=== PATIENT | male | born 1935 | race Caucasian/White ===

== ENCOUNTER 2018-02-11 14:07 | Inpatient (IN) | payer MEDICARE, BC ==
[2018-02-11 14:27] LABS: ADD MAN DIFF? NO
[2018-02-11] MEDS: ONDANSETRON 4 MG INJ IV ×2 (14:27→16:53)
[2018-02-11] MEDS: SODIUM CHLORIDE 0.9% 1L BAG IV* (14:28)
[2018-02-11] MEDS: morphine 4 MG/ML VIAL IV ×2 (14:28→16:54)
[2018-02-11] MEDS: CEFEPIME 2GM/50 ML (PMX) 50 ML IVPB (14:29)
[2018-02-11] MEDS: ACETAMINOPHEN 325 MG TAB PO (14:29)
[2018-02-11 14:32] LABS: ABNORMAL IP MESSAGE 1; BASOPHILS % 0.1 % (0.0-2.0); EOSINOPHILS # 0.1 10^3/ul (0.0-0.5); EOSINOPHILS % 0.4 % (0.0-7.0); HEMATOCRIT 41.2 % (42.0-52.0); HEMOGLOBIN 13.7 g/dl (14.0-18.0); LYMPHOCYTES # 0.4 10^3/ul (0.8-2.9); MEAN CORPUSCULAR HEMOGLOBIN 31.4 pg (29.0-33.0); MEAN CORPUSCULAR HGB CONC 33.3 g/dl (32.0-37.0); MEAN CORPUSCULAR VOLUME 94.3 fl (82.0-101.0); MEAN PLATELET VOLUME 10.1 fl (7.4-10.4); MONOCYTE # 0.1 10^3/ul (0.3-0.9); MONOCYTES % 1.1 % (0.0-11.0); NEUTROPHIL # 12.1 10^3/ul (1.6-7.5); PLATELET COUNT 264 10^3/UL (140-415); POSITIVE DIFF @See below; RED BLOOD COUNT 4.37 10^6/ul (4.70-6.10); RED CELL DISTRIBUTION WIDTH 12.7 % (11.5-14.5)
[2018-02-11 14:32] LABS: WHITE BLOOD COUNT 12.7 10^3/ul (4.8-10.8)
[2018-02-11 14:48] LABS: INR 0.88; PARTIAL THROMBOPLASTIN TIME 24.8 Sec (23.0-35.0); PT RATIO 0.9
[2018-02-11 14:52] LABS: ALANINE AMINOTRANSFERASE 148 IU/L (13-69); ALBUMIN 4.4 g/dl (3.3-4.9); ALBUMIN/GLOBULIN RATIO 1.69; ALKALINE PHOSPHATASE 384 IU/L (42-121); ANION GAP 12 (5-13); ASPARTATE AMINO TRANSFERASE 180 IU/L (15-46); BILIRUBIN,INDIRECT 0.6 mg/dl (0-1.1); BILIRUBIN,TOTAL 2.6 mg/dl (0.2-1.3); BLOOD UREA NITROGEN 20 mg/dl (7-20); CALCIUM 9.5 mg/dl (8.4-10.2); CARBON DIOXIDE 29 mmol/L (21-31); CHLORIDE 102 mmol/L (97-110); CREATININE 0.86 mg/dl (0.61-1.24); GLUCOSE 119 mg/dl (70-220); LIPASE 121 U/L (23-300); POTASSIUM 4.1 mmol/L (3.5-5.1); SODIUM 143 mmol/L (135-144)
[2018-02-11] MEDS: VANCOMYCIN 1 GM (PMX) 250 ML IVPB (15:06)
[2018-02-11 15:24] LABS: EOSINOPHILS % (M) 1 % (0-7); GIANT THROMBO% (M) 1 % (0-0); LYMPHOCYTES #M 0.7 10^3/ul (0.8-2.9); LYMPHOCYTES % (M) 6 % (15-51); PLATELET ESTIMATE NORMAL; SEGMENTED NEUTROPHILS (M) % 93 % (39-77); SMUDGE%M 16 % (0-0)
[2018-02-11] MEDS ORDERED: ACETAMINOPHEN 325 MG TAB PO ×2 (17:00→18:00)
[2018-02-11] MEDS ORDERED: ONDANSETRON 4 MG INJ IV ×2 (17:00→18:00)
[2018-02-11] MEDS: SOD CHLORIDE 0.9% 1,000 ML IV (17:37)
[2018-02-11] MEDS ORDERED: PIPER-TAZO 3.375 GM IV (PMX) 100 ML IVPB (18:00)
[2018-02-11] MEDS ORDERED: NACL 0.9% 3 ML SYG IV (18:00)
[2018-02-11 18:44] LABS: LACTIC ACID 2.2 mmol/L (0.5-2.0)
[2018-02-11] MEDS: morphine 2 MG INJ IV ×2 (18:50→23:09)
[2018-02-11] MEDS: CEFEPIME 2GM/50 ML IVPB (23:09)
[2018-02-12] MEDS: ZOLPIDEM 5 MG TAB PO (00:09)
[2018-02-12] MEDS: SOD CHLORIDE 0.9% 1,000 ML IV ×5 (03:27→23:37)
[2018-02-12 05:43] LABS: WHITE BLOOD COUNT 27.3 10^3/ul (4.8-10.8)
[2018-02-12 05:43] LABS: ABNORMAL IP MESSAGE 1; HEMOGLOBIN 12.9 g/dl (14.0-18.0); MEAN CORPUSCULAR HEMOGLOBIN 31.1 pg (29.0-33.0); MEAN CORPUSCULAR HGB CONC 33.1 g/dl (32.0-37.0); PLATELET COUNT 201 10^3/UL (140-415); POSITIVE DIFF @See below; RED BLOOD COUNT 4.15 10^6/ul (4.70-6.10); RED CELL DISTRIBUTION WIDTH 13.3 % (11.5-14.5)
[2018-02-12 06:22] LABS: ALANINE AMINOTRANSFERASE 337 IU/L (13-69); ALBUMIN 3.5 g/dl (3.3-4.9); ALBUMIN/GLOBULIN RATIO 1.29; ALKALINE PHOSPHATASE 305 IU/L (42-121); ANION GAP 12 (5-13); ASPARTATE AMINO TRANSFERASE 522 IU/L (15-46); BILIRUBIN,INDIRECT 0.9 mg/dl (0-1.1); BILIRUBIN,TOTAL 5.1 mg/dl (0.2-1.3); BLOOD UREA NITROGEN 27 mg/dl (7-20); CALCIUM 8.4 mg/dl (8.4-10.2); CARBON DIOXIDE 26 mmol/L (21-31); CHLORIDE 100 mmol/L (97-110); CREATININE 1.03 mg/dl (0.61-1.24); GLUCOSE 119 mg/dl (70-220); PHOSPHORUS 3.2 mg/dl (2.5-4.9); POTASSIUM 5.1 mmol/L (3.5-5.1); SODIUM 138 mmol/L (135-144); TOTAL PROTEIN 6.2 g/dl (6.1-8.1)
[2018-02-12 06:23] LABS: ADD MAN DIFF? YES
[2018-02-12 08:01] LABS: BAND NEUTROPHILS #M 3.8 10^3/ul (0.0-0.6); BAND NEUTROPHILS % (M) 14 % (0-4); LYMPHOCYTES #M 0.2 10^3/ul (0.8-2.9); LYMPHOCYTES % (M) 1 % (15-51); MONOCYTE #M 0.8 10^3/ul (0.3-0.9); MONOCYTES % (M) 3 % (0-11); PLATELET ESTIMATE NORMAL; RBC MORPHOLOGY COMMENT @See below; SEG NEUT #M 23.4 10^3/ul (1.6-7.5); SEGMENTED NEUTROPHILS (M) % 82 % (39-77); SMUDGE%M 7 % (0-0); WBC MORPHOLOGY COMMENT @See below
[2018-02-12] MEDS: CEFEPIME 2GM/50 ML IVPB ×2 (09:01→20:06)
[2018-02-12] MEDS: FAMOTIDINE 20 MG TAB PO ×2 (11:00→20:06)
[2018-02-12] MEDS: DIPHENHYDRAMINE 50 MG CAP PO (17:56)
[2018-02-12] MEDS: CHLORPROMAZINE 25 MG TAB PO (20:06)
[2018-02-13] MEDS: SOD CHLORIDE 0.9% 1,000 ML IV ×3 (05:44→17:16)
[2018-02-13 07:48] LABS: ADD MAN DIFF? NO
[2018-02-13 07:50] LABS: BASOPHILS % 0.2 % (0.0-2.0); EOSINOPHILS # 0.1 10^3/ul (0.0-0.5); EOSINOPHILS % 0.6 % (0.0-7.0); HEMATOCRIT 37.5 % (42.0-52.0); HEMOGLOBIN 12.5 g/dl (14.0-18.0); LYMPHOCYTES # 0.7 10^3/ul (0.8-2.9); LYMPHOCYTES % 4.5 % (15.0-51.0); MEAN CORPUSCULAR HEMOGLOBIN 31.3 pg (29.0-33.0); MEAN CORPUSCULAR HGB CONC 33.3 g/dl (32.0-37.0); MEAN CORPUSCULAR VOLUME 93.8 fl (82.0-101.0); MEAN PLATELET VOLUME 11.3 fl (7.4-10.4); MONOCYTE # 0.6 10^3/ul (0.3-0.9); MONOCYTES % 3.7 % (0.0-11.0); NEUTROPHIL # 13.5 10^3/ul (1.6-7.5); NEUTROPHILS % 88.6 % (39.0-77.0); PLATELET COUNT 153 10^3/UL (140-415); RED CELL DISTRIBUTION WIDTH 13.5 % (11.5-14.5)
[2018-02-13 07:50] LABS: WHITE BLOOD COUNT 15.3 10^3/ul (4.8-10.8)
[2018-02-13 08:16] LABS: ALANINE AMINOTRANSFERASE 588 IU/L (13-69); ALBUMIN 2.7 g/dl (3.3-4.9); ALBUMIN/GLOBULIN RATIO 1.08; ALKALINE PHOSPHATASE 385 IU/L (42-121); ANION GAP 9 (5-13); BILIRUBIN,INDIRECT 1.1 mg/dl (0-1.1); BILIRUBIN,TOTAL 5.1 mg/dl (0.2-1.3); BLOOD UREA NITROGEN 24 mg/dl (7-20); CALCIUM 7.9 mg/dl (8.4-10.2); CARBON DIOXIDE 24 mmol/L (21-31); CHLORIDE 108 mmol/L (97-110); CREATININE 0.88 mg/dl (0.61-1.24); GLUCOSE 88 mg/dl (70-220); POTASSIUM 4.5 mmol/L (3.5-5.1); SODIUM 141 mmol/L (135-144); TOTAL PROTEIN 5.2 g/dl (6.1-8.1)
[2018-02-13 08:23] LABS: ASPARTATE AMINO TRANSFERASE 886 IU/L (15-46)
[2018-02-13 08:36] LABS: LACTIC ACID 1.2 mmol/L (0.5-2.0)
[2018-02-13] MEDS: FAMOTIDINE 20 MG TAB PO ×2 (09:26→22:02)
[2018-02-13] MEDS: CEFEPIME 2GM/50 ML IVPB ×2 (09:26→21:11)
[2018-02-13] MEDS: CHLORPROMAZINE 25 MG TAB PO ×3 (09:27→22:02)
[2018-02-13] MEDS: DOCUSATE SODIUM 100 MG CAP PO (09:30)
[2018-02-14] MEDS: SOD CHLORIDE 0.9% 1,000 ML IV ×4 (03:52→17:53)
[2018-02-14 06:01] LABS: ADD MAN DIFF? NO
[2018-02-14 06:08] LABS: BASOPHIL # 0.1 10^3/ul (0.0-0.1); BASOPHILS % 0.4 % (0.0-2.0); EOSINOPHILS # 0.2 10^3/ul (0.0-0.5); EOSINOPHILS % 1.7 % (0.0-7.0); HEMOGLOBIN 12.8 g/dl (14.0-18.0); LYMPHOCYTES # 1.1 10^3/ul (0.8-2.9); LYMPHOCYTES % 8.5 % (15.0-51.0); MEAN CORPUSCULAR HEMOGLOBIN 31.4 pg (29.0-33.0); MEAN CORPUSCULAR HGB CONC 34.6 g/dl (32.0-37.0); MEAN CORPUSCULAR VOLUME 90.9 fl (82.0-101.0); MEAN PLATELET VOLUME 11.3 fl (7.4-10.4); MONOCYTE # 0.6 10^3/ul (0.3-0.9); MONOCYTES % 4.9 % (0.0-11.0); NEUTROPHIL # 10.4 10^3/ul (1.6-7.5); NEUTROPHILS % 82.8 % (39.0-77.0); PLATELET COUNT 164 10^3/UL (140-415); RED BLOOD COUNT 4.07 10^6/ul (4.70-6.10); RED CELL DISTRIBUTION WIDTH 13.4 % (11.5-14.5)
[2018-02-14 06:08] LABS: WHITE BLOOD COUNT 12.6 10^3/ul (4.8-10.8)
[2018-02-14 06:55] LABS: LACTIC ACID 1.3 mmol/L (0.5-2.0)
[2018-02-14 07:03] LABS: ALANINE AMINOTRANSFERASE 586 IU/L (13-69); ALBUMIN/GLOBULIN RATIO 0.96; ALKALINE PHOSPHATASE 540 IU/L (42-121); ANION GAP 11 (5-13); ASPARTATE AMINO TRANSFERASE 650 IU/L (15-46); BILIRUBIN,INDIRECT 2.3 mg/dl (0-1.1); BILIRUBIN,TOTAL 5.4 mg/dl (0.2-1.3); BLOOD UREA NITROGEN 20 mg/dl (7-20); CARBON DIOXIDE 19 mmol/L (21-31); CHLORIDE 111 mmol/L (97-110); CREATININE 0.77 mg/dl (0.61-1.24); GLUCOSE 98 mg/dl (70-220); POTASSIUM 4.2 mmol/L (3.5-5.1); SODIUM 141 mmol/L (135-144); TOTAL PROTEIN 6.1 g/dl (6.1-8.1)
[2018-02-14] MEDS: FAMOTIDINE 20 MG TAB PO ×2 (08:28→20:07)
[2018-02-14] MEDS: CEFEPIME 2GM/50 ML IVPB ×2 (08:30→20:08)
[2018-02-14] MEDS: CHLORPROMAZINE 25 MG TAB PO ×3 (09:00→20:07)
[2018-02-14] MEDS ORDERED: LIDOCAINE 1% (MPF) 5 ML VIAL SC (21:30)
[2018-02-15] MEDS: ERTAPENEM SODIUM 1 GM in SOD CHLORIDE 0.9% 100 ML IVPB (03:26)
[2018-02-15 06:32] LABS: ADD MAN DIFF? NO
[2018-02-15 06:36] LABS: BASOPHILS % 0.3 % (0.0-2.0); EOSINOPHILS # 0.3 10^3/ul (0.0-0.5); EOSINOPHILS % 2.4 % (0.0-7.0); HEMOGLOBIN 11.2 g/dl (14.0-18.0); LYMPHOCYTES % 8.3 % (15.0-51.0); MEAN CORPUSCULAR HEMOGLOBIN 31.9 pg (29.0-33.0); MEAN CORPUSCULAR VOLUME 91.2 fl (82.0-101.0); MEAN PLATELET VOLUME 11.5 fl (7.4-10.4); MONOCYTES % 7.7 % (0.0-11.0); NEUTROPHIL # 9.9 10^3/ul (1.6-7.5); NEUTROPHILS % 78.4 % (39.0-77.0); PLATELET COUNT 174 10^3/UL (140-415); RED BLOOD COUNT 3.51 10^6/ul (4.70-6.10); RED CELL DISTRIBUTION WIDTH 13.4 % (11.5-14.5)
[2018-02-15 06:36] LABS: WHITE BLOOD COUNT 12.6 10^3/ul (4.8-10.8)
[2018-02-15 07:02] LABS: ALANINE AMINOTRANSFERASE 359 IU/L (13-69); ALBUMIN 2.7 g/dl (3.3-4.9); ALKALINE PHOSPHATASE 440 IU/L (42-121); ANION GAP 7 (5-13); ASPARTATE AMINO TRANSFERASE 201 IU/L (15-46); BILIRUBIN,INDIRECT 1.8 mg/dl (0-1.1); BILIRUBIN,TOTAL 3.1 mg/dl (0.2-1.3); BLOOD UREA NITROGEN 15 mg/dl (7-20); CARBON DIOXIDE 23 mmol/L (21-31); CHLORIDE 109 mmol/L (97-110); CREATININE 0.69 mg/dl (0.61-1.24); GLUCOSE 102 mg/dl (70-220); POTASSIUM 3.8 mmol/L (3.5-5.1); SODIUM 139 mmol/L (135-144); TOTAL PROTEIN 5.4 g/dl (6.1-8.1)
[2018-02-15] MEDS: CHLORPROMAZINE 25 MG TAB PO ×3 (08:34→20:23)
[2018-02-15] MEDS: FAMOTIDINE 20 MG TAB PO ×2 (08:35→20:07)
[2018-02-15] MEDS: SOD CHLORIDE 0.9% 1,000 ML IV ×2 (10:34→22:00)
[2018-02-15] MEDS: HYDROCODONE/APAP (5/325) TAB PO (14:36)
[2018-02-16] MEDS: HYDROCODONE/APAP (5/325) TAB PO (00:55)
[2018-02-16] MEDS: ERTAPENEM SODIUM 1 GM in SOD CHLORIDE 0.9% 100 ML IVPB (03:42)
[2018-02-16] MEDS: FAMOTIDINE 20 MG TAB PO (08:30)
[2018-02-16] MEDS: CHLORPROMAZINE 25 MG TAB PO (08:34)
== END 2018-02-16 11:50 | DRG 862 ==
LOC: E/R 14:07 → 2NE 17:12
PROC: CF1C1ZZ Planar Nuclear Medicine Imaging of Hepatobiliary System, All using Technetium 99m (Tc-99m) (ICD-10-PCS; principal; 2018-02-12)
PROC: 02HV33Z Insertion of Infusion Device into Superior Vena Cava, Percutaneous Approach (ICD-10-PCS; 2018-02-15)
DX: T81.44XA Sepsis following a procedure, initial encounter (principal); A41.51 Sepsis due to Escherichia coli [E. coli]; R65.20 Severe sepsis without septic shock; K83.09 Other cholangitis; Z90.49 Acquired absence of other specified parts of digestive tract; Z95.0 Presence of cardiac pacemaker; D63.8 Anemia in other chronic diseases classified elsewhere
CPT/HCPCS: 36415; 36569; 71045; 74176; 76937; 78226; 80053; 83605; 83690; 83735; 84100; 85025; 85610; 85730; 87040; 93005; 96374; 96375; 99291-25